=== PATIENT | female | born 1985 | race Caucasian/White ===

== ENCOUNTER → 2017-06-28 | Outpatient (CLI) | payer BC | LOC: ZCOL.LAB 15:24 | DX: J32.9 Chronic sinusitis, unspecified (principal) ==

== ENCOUNTER → 2023-12-31 | Outpatient (CLI) | payer BC ==
[~2023-12-31] MED LIST: Iohexol 300 - 10 ML VIAL IV ONE; Triamcinolone 40 MG/ML 1 ML VIAL IJ ONE
== END ==
LOC: COL.RAD 08:35
DX: M25.572 Pain in left ankle and joints of left foot (principal)
CPT/HCPCS: J0665; J3301; Q9967